=== PATIENT | female | born 1980 | race Caucasian/White ===

== ENCOUNTER 2017-12-18 05:38 | Day surgery (SDC) | payer OTHER ==
[2017-12-18] MEDS ORDERED: MIDAZOLAM 1 MG/ML 2 ML INJ ×2 (09:42)
[2017-12-18] MEDS ORDERED: FENTAnyl 50 MCG/ML VIAL (09:42)
== END 2017-12-18 11:23 | disposition home or self-care (01) ==
LOC: GIL 05:38
DX: K44.9 Diaphragmatic hernia without obstruction or gangrene (principal); K21.9 Gastro-esophageal reflux disease without esophagitis; K29.60 Other gastritis without bleeding; Z80.0 Family history of malignant neoplasm of digestive organs
CPT/HCPCS: 43239; 84703; 87081; 88305